=== PATIENT | male | born 1945 | race American Indian/Alaskan Native ===

== ENCOUNTER 2018-05-26 18:04 | Emergency (ER) | payer MEDICARE, MEDICAID ==
[2018-05-26 18:19] VITALS: PULSE 75; RESP 18; O2SAT 97; BMI 25.0
[2018-05-26] MEDS ORDERED: Insulin Regular 1 UNITS/0.01 ML ML IVP STA (19:07)
--- NOTE | 2018-05-26 19:18 | ED PDOC ---
Arrival/HPI <Srinivasa Painter - Last Filed: 05/26/18 19:56> - General Historian: Patient - History of Present Illness Narrative History of Present Illness (Text): 05/26/18 19:15 This is a 73 year old AA male with PMH of IDDM, neuropathy of hands and feet, HTN, BPH, dyslipidemia, CHF, PM and defibrillator who presents with hyperglycemia. Pt states that his home visiting nurse took his sugar at the house and it was over 500. Pt states that he did not take his insulin last night. Pt denies fever, chills, chest pain, sob, palpitations, abdominal pain, n/v/d, weakness, headache, focal weakness. PMD: [place] Time/Duration: Prior to Arrival Symptom Onset: Sudden Symptom Course: Unchanged <Vincent Smith - Last Filed: 05/26/18 20:23> - General Chief Complaint: High Blood Sugar Time Seen by Provider: 05/26/18 18:26 Past Medical History - Provider Review Nursing Documentation Reviewed: Yes - Infectious Disease Hx of Infectious Diseases: None - Cardiac Hx ND: Yes (7 times) - Pulmonary Hx Respiratory Disorders: Yes Hx Bronchitis: Yes Hx Pneumonia: Yes - Neurological Other/Comment: stroke. neuropathy - HEENT Hx HEENT Disorder: No - Renal Hx Renal Disorder: No - Endocrine/Metabolic Hx Diabetes Mellitus Type 1: Yes - Hematological/Oncological Hx Blood Disorders: No - Integumentary Hx Dermatological Disorder: No - Musculoskeletal/Rheumatological Hx Musculoskeletal Disorders: Yes Hx Falls: No - Gastrointestinal Hx Gastrointestinal Disorders: No - Genitourinary/Gynecological Hx Genitourinary Disorders: No - Psychiatric Hx Psychophysiologic Disorder: Yes Hx Depression: Yes Hx Substance Use: No - Surgical History Hx Cardiac Catheterization: Yes Hx Coronary Stent: Yes - Anesthesia Hx Anesthesia: Yes Hx Anesthesia Reactions: No Hx Malignant Hyperthermia: No - Suicidal Assessment Feels Threatened In Home Enviroment: No <Vincent Smith - Last Filed: 05/26/18 20:23> Family/Social History - Physician Review Nursing Documentation Reviewed: Yes Family/Social History: Unknown Family HX Smoking Status: Never Smoked Hx Alcohol Use: No Hx Substance Use: No <Vincent Smith - Last Filed: 05/26/18 20:23> Allergies/Home Meds <Srinivasa Painter - Last Filed: 05/26/18 19:56> <Vincent Smith - Last Filed: 05/26/18 20:23> Allergies/Adverse Reactions: Allergies No Known Allergies Allergy (Verified 10/25/17 10:24) Home Medications: Home Meds Medication Instructions Recorded Confirmed Aspirin [Ecotrin] 81 mg PO DAILY 10/25/17 10/25/17 Atorvastatin [Lipitor] 40 mg PO DAILY 10/25/17 10/25/17 Clopidogrel [Plavix] 75 mg PO DAILY 10/25/17 10/25/17 Dexlansoprazole [Dexilant] 30 mg PO DAILY 10/25/17 10/25/17 Empagliflozin [Jardiance] 10 mg PO DAILY 10/25/17 10/25/17 Febuxostat [Uloric] 40 mg PO DAILY 10/25/17 10/25/17 Linagliptin [Tradjenta] 5 mg PO DAILY 10/25/17 10/25/17 MetFORMIN ER [Glucophage XR] 750 mg PO BID 10/25/17 10/25/17 Nitroglycerin 0.2 mg/hr [Nitro-Dur 1 patch TD DAILY 10/25/17 10/25/17 0.2 mg/hr Patch] Pregabalin [Lyrica] 300 mg PO HS 10/25/17 10/25/17 Ranolazine [Ranexa] 500 mg PO Q12 10/25/17 10/25/17 Tamsulosin [Flomax] 0.4 mg PO HS 10/25/17 10/25/17 Valsartan [Diovan] 40 mg PO DAILY 10/25/17 10/25/17 amLODIPine [Norvasc] 5 mg PO DAILY 10/25/17 10/25/17 Aspirin [Ecotrin] 81 mg PO DAILY 04/08/18 04/08/18 Atorvastatin [Lipitor] 40 mg PO DAILY 04/08/18 04/08/18 Calcitriol [Rocaltrol] 0.25 mcg PO 04/08/18 Carvedilol [Coreg] 3.125 mg PO BID 04/08/18 04/08/18 Clopidogrel [Plavix] 75 mg PO DAILY 04/08/18 04/08/18 Dexlansoprazole [Dexilant] 30 mg PO DAILY 04/08/18 04/08/18 Enalapril Maleate [Vasotec] 2.5 mg PO 04/08/18 Febuxostat [Uloric] 40 mg PO DAILY 04/08/18 04/08/18 Linaclotide [Linzess] 145 mg PO DAILY 04/08/18 04/08/18 Pregabalin [Lyrica] 100 mg PO AC 04/08/18 04/08/18 Pregabalin [Lyrica] 300 mg PO HS 04/08/18 04/08/18 Ranolazine [Ranexa] 500 mg PO BID 04/08/18 04/08/18 Spironolactone [Aldactone] 25 mg PO DAILY 04/08/18 04/08/18 Tamsulosin [Flomax] 0.4 mg PO DAILY 04/08/18 04/08/18 Review of Systems - Review of Systems Constitutional: Normal Eyes: Normal ENT: Normal Respiratory: Normal Cardiovascular: Normal Gastrointestinal: Normal Genitourinary Male: Frequency (chronic, secondary to BPH), Other (wears pampers due to BPH) Musculoskeletal: Normal Skin: Normal Neurological: Dizziness (chronic). absent: Headache, Focal Weakness, Speech Changes, Facial Droop Hemo/Lymphatic: Normal Psychiatric: Normal <Vincent Smith - Last Filed: 05/26/18 20:23> Physical Exam Vital Signs Temp Pulse Resp BP Pulse Ox 05/26/18 18:19 98.0 F 75 18 157/83 H 97 <Srinivasa Painter - Last Filed: 05/26/18 19:56> Vital Signs Reviewed: Yes Vital Signs Temp Pulse Resp BP Pulse Ox 05/26/18 18:19 98.0 F 75 18 157/83 H 97 Temperature: Afebrile Blood Pressure: Normal Pulse: Regular Respiratory Rate: Normal Appearance: Positive for: Well-Appearing, Non-Toxic Pain Distress: None Mental Status: Positive for: Alert and Oriented X 3 Finger Stick Blood Glucose: 332 - Systems Exam Head: Present: Atraumatic, Normocephalic Extroacular Muscles: Present: EOMI Mouth: Present: Moist Mucous Membranes Respiratory/Chest: Present: Clear to Auscultation. No: Respiratory Distress Cardiovascular: Present: Regular Rate and Rhythm, Normal S1, S2 Abdomen: Present: Distention (normal as per pt), Normal Bowel Sounds. No: Tenderness, Peritoneal Signs, Rebound, Guarding, Hernias Back: Present: Normal Inspection Upper Extremity: Present: Normal Inspection, NORMAL PULSES, Capillary Refill < 2 s. No: Edema Lower Extremity: Present: Normal Inspection, Other (1+ bilateral DP pulses). No: Edema, CALF TENDERNESS Neurological: Present: GCS=15 Skin: Present: Warm, Dry Psychiatric: Present: Alert, Oriented x 3 <Vincent Smith - Last Filed: 05/26/18 20:23> Medical Decision Making ED Course and Treatment: 05/26/18 19:56 patient nontoxic appearing, patient missed a dose of his insulin last night but the elevated blood sugar today are elevated without complication, patient has access and good ability to continue taking his insulin regimen. blood pressure elevated but without acute symptoms such as chest pain or headache to suggest acute end organ damage. patient is stable for dc and instructed to follow up with his primary care doctor. - Lab Interpretations Lab Results: 05/26/18 19:00 05/26/18 19:00 Lab Results 05/26/18 19:00: Sodium 138, Potassium 4.9, Chloride 99, Carbon Dioxide 25, Anion Gap 18, BUN 29 H, Creatinine 2.9 H, Est GFR ( Amer) 26, Est GFR (Non-Af Amer) 22, Random Glucose 308 H* D, Calcium 9.4 05/26/18 19:00: WBC 4.8, RBC 4.34, Hgb 12.1 L, Hct 36.2 L, MCV 83.4, MCH 27.9, MCHC 33.4, RDW 12.4, Plt Count 184, MPV 10.9, Gran % 55.0, Lymph % (Auto) 32.6, [place] % (Auto) 11.0 H, Eos % (Auto) 1.2 L, Baso % (Auto) 0.2, Gran # 2.65, Lymph # (Auto) 1.6, [place] # (Auto) 0.5, Eos # (Auto) 0.1, Baso # (Auto) 0.01 05/26/18 18:18: POC Glucose (mg/dL) 332 H - Medication Orders Current Medication Orders: Discontinued Medications Insulin Human Regular (Humulin R) 6 units IVP STAT STA Stop: 05/26/18 19:08 <Srinivasa Painter - Last Filed: 05/26/18 19:56> ED Course and Treatment: 05/26/18 19:29 CBC, BMP, UA. - Lab Interpretations Lab Results: Lab Results 05/26/18 18:18: POC Glucose (mg/dL) 332 H - Medication Orders Current Medication Orders: Discontinued Medications Insulin Human Regular (Humulin R) 6 units IVP STAT STA Stop: 05/26/18 19:08 <Vincent Smith - Last Filed: 05/26/18 20:23> Disposition/Present on Arrival - Present on Arrival Any Indicators Present on Arrival: No - Disposition Have Diagnosis and Disposition been Completed?: Yes Disposition Time: 19:58 Patient Plan: Discharge <Srinivasa Painter - Last Filed: 05/26/18 19:56> - Present on Arrival History of DVT/PE: No History of Uncontrolled Diabetes: Yes Urinary Catheter: No History of Decub. Ulcer: No History Surgical Site Infection Following: None <Vincent Smith - Last Filed: 05/26/18 20:23> - Disposition Diagnosis: Hyperglycemia due to type 2 diabetes mellitus, Hypertension Disposition: HOME/ ROUTINE Patient Problems: Current Active Problems Problem Status Onset Hyperglycemia due to type 2 diabetes mellitus Acute Hypertension Acute Condition: STABLE Discharge Instructions (ExitCare): Type 2 Diabetes, High Blood Pressure in Adults Additional Instructions: Return for any new physical symptoms. Follow up with your primary care doctor as soon as possible. MINNIE KEYES, thank you for letting us take care of you today. Your provider was Dr. Srinivasa Painter and you were treated for high blood sugar. The emergency medical care you received today was directed at your acute symptoms. If you were prescribed any medication, please fill it and take as directed. It may take several days for your symptoms to resolve. Return to the Emergency Department if your symptoms worsen, do not improve, or if you have any other problems. Please contact your doctor or call one of the physicians/clinics you have been referred to that are listed on the Patient Visit Information form that is included in your discharge packet. Bring any paperwork you were given at discharge with you along with any medications you are taking to your follow up visit. Our treatment cannot replace ongoing medical care by a primary care provider outside of the emergency department. Thank you for allowing the [facility] team to be part of your care today. If you had an X-Ray or CT scan: A Radiologist will review the ED reading if any change in treatment is needed we will contact you. If you had a blood, urine, or wound culture: It will take several days for the results, if any change in treatment is needed we will contact you. If you had an STI test: It will take 48 hours for the results. Please call after 1 week if you have not heard back. Referrals: [facility] [Outside] - Follow up with primary Sabina Salinas MD [Medical Doctor] - Follow up with primary Forms: [employer] ([place]ian)
[2018-05-26 19:29] LABS: BASO # 0.01 K/mm3 (0.0-2.0); BASO % 0.2 % (0.0-3.0); EOS # 0.1 (0.0-0.7); EOS % 1.2 % (1.5-5.0); GRAN # 2.65 (1.4-6.5); HEMOGLOBIN 12.1 g/dL (14.0-18.0); LYMPH # 1.6 (1.2-3.4); LYMPH % 32.6 % (22.0-35.0); MEAN CELL VOLUME 83.4 fl (80.0-105.0); MEAN CORPUSCULAR HEMOGLOBIN 27.9 pg (25.0-35.0); MEAN CORPUSCULAR HGB CONC 33.4 g/dl (31.0-37.0); MEAN PLATELET VOLUME 10.9 fl (7.0-11.0); MONO # 0.5 (0.1-0.6); RBC 4.34 10^6/uL (3.5-6.1); RED CELL DISTRIBUTION WIDTH 12.4 % (11.5-14.5); WHITE BLOOD COUNT 4.8 10^3/uL (4.5-11.0)
[2018-05-26 19:42] LABS: CALCIUM 9.4 mg/dL (8.4-10.5)
[2018-05-27 00:09] VITALS: BP 150/76; TEMP 97.8
== END 2018-05-26 20:15 | disposition home or self-care (01) ==
LOC: ED 18:04
DX: E11.65 Type 2 diabetes mellitus with hyperglycemia (principal); Z79.4 Long term (current) use of insulin; I11.0 Hypertensive heart disease with heart failure; I50.9 Heart failure, unspecified